=== PATIENT | male | born 1950 | race Caucasian/White ===

== ENCOUNTER → 2020-01-03 | Outpatient (CLI) | payer MEDICARE ==
[2019-12-14 15:00] VITALS: BP 138/62
[~2020-01-03] MED LIST: AMOX1TAB10 PO; ASPI-630 PO; FAMO20TA5 PO; FISH12002 PO; MAGN400C PO; MILK500C PO; OXYB5TAB10 PO; PSYL0.5215 PO; SAW1CAPS8 PO; ST.300CA2 PO; TURM538C PO
--- NOTE | 2020-01-03 08:47 | RAD ---
CT HEAD WITHOUT CONTRAST 01/03/2020 8:30 AM Indication: Reason: SAH TRAUMATIC / Spl. Instructions: / History: Comparison: CT head without contrast December 10, 2019 Procedure: Multidetector CT imaging of the head was performed without the administration of contrast. Findings: Previously seen right frontal subarachnoid hemorrhage has resolved. There is no evidence of acute intracranial hemorrhage. There is no evidence of acute territorial infarction. Please note that CT is limited for evaluation of acute ischemia. No mass effect or midline shift is identified . The ventricles and basilar cisterns have an appropriate appearance. No abnormal extra-axial fluid collections are seen. No acute osseous changes are identified. Impression: Resolution of previously seen right frontal subarachnoid hemorrhage. No evidence of acute intracranial abnormality CT DOSING PQRS STATEMENT: One or more of the following individualized dose reduction techniques were utilized for this examination: 1. Automated exposure control 2. Adjustment of the mA and/or kV according to patient size 3. Use of iterative reconstruction technique Electronically signed by: Eric Burns MD (01/03/2020 8:45 AM) [id number]
== END ==
LOC: CT 08:14
PROVIDERS: ATTEND Neurological Surgery
DX: S06.360A Traumatic hemorrhage of cerebrum, unspecified, without loss of consciousness, initial encounter (principal); X58.XXXA Exposure to other specified factors, initial encounter; Y93.89 Activity, other specified; Y92.89 Other specified places as the place of occurrence of the external cause; Y99.8 Other external cause status
CPT/HCPCS: 70450

== ENCOUNTER → 2020-02-15 | Outpatient (CLI) | payer MEDICARE ==
[2019-12-14 15:00] VITALS: BP 138/62
[2020-02-15 13:55] LABS: BASO % 1 % (0-3); EOS # 0.3 x10^3/uL (0.0-0.7); EOS % 5 % (0-3); HEMATOCRIT 41.3 % (39.0-53.0); HEMOGLOBIN 14.2 g/dL (13.0-17.5); LYMPH # 1.4 x10^3/uL (1.0-4.8); LYMPH % 26 % (24-48); MEAN CORPUSCULAR HEMOGLOBIN 31 pg (25-35); MEAN CORPUSCULAR HGB CONC 34 g/dL (31-37); MEAN CORPUSCULAR VOLUME 90 fL (79-100); MONO # 0.8 x10^3/uL (0.0-1.1); MONO % 16 % (0-9); NEUT # 2.8 x10^3/uL (1.8-7.7); NEUT % 52 % (31-73); PLATELET COUNT 171 x10^3/uL (140-400); RED BLOOD COUNT 4.61 x10^6/uL (4.30-5.70); RED CELL DISTRIBUTION WIDTH 14.4 % (11.5-14.5); WHITE BLOOD COUNT 5.3 x10^3/uL (4.0-11.0)
[2020-02-15 14:17] LABS: C-REACTIVE PROTEIN 33.2 mg/L (0-3.3); CALCIUM 9.9 mg/dL (8.5-10.1); GFR 73.9; POTASSIUM 4.4 mmol/L (3.5-5.1)
--- NOTE | 2020-02-15 15:20 | RAD ---
3 views the right foot without comparison for nonhealing wound on the plantar aspect. FINDINGS: There is no fracture, dislocation, or acute osseous abnormality identified. No significant degenerative changes are seen. There is a calcaneal enthesophyte and calcaneal bone spur. No radiopaque foreign bodies are evident. IMPRESSION: 1. No acute osseous abnormality. Electronically signed by: Jaspal Short MD (02/15/2020 3:15 PM) [id number]
== END ==
LOC: LAB 12:46
PROVIDERS: ATTEND Preventive Medicine Undersea and Hyperbaric Medicine
DX: S91.301A Unspecified open wound, right foot, initial encounter (principal); M77.31 Calcaneal spur, right foot; L89.894 Pressure ulcer of other site, stage 4; X58.XXXA Exposure to other specified factors, initial encounter; Y93.89 Activity, other specified; Y92.89 Other specified places as the place of occurrence of the external cause; Y99.8 Other external cause status
CPT/HCPCS: 36415; 73630; 80048; 85025; 86140

== ENCOUNTER → 2020-02-21 | Outpatient (CLI) | payer MEDICARE ==
[2019-12-14 15:00] VITALS: BP 138/62
--- NOTE | 2020-02-22 08:27 | RAD ---
02/21/2020 1. Ankle-brachial index 2. Bilateral lower extremity arterial duplex ultrasound INDICATION: Right-sided foot wound, involving the plantar surface of the foot, present for approximately one year. COMPARISON STUDY: None available Discussion: Right brachial pressure: 1 24 mmHg Left brachial pressure: 1 20 mmHg Right posterior tibial pressure: 1 77 mmHg Left posterior tibial pressure: 1 68 mmHg Right dorsalis pedis pressure 1 76 mmHg Left dorsalis pedis pressure 1 73 mmHg Right MARION 1.46 Left MARION 1.42 These ankle-brachial indices are abnormally elevated most commonly reflecting vessel hardening and noncompressibility secondary to atherosclerotic vascular disease Ultrasound evaluation of the major arteries of the bilateral lower extremities was performed including color Doppler imaging spectral analysis. There is diffuse atherosclerotic vascular disease. Somewhat prominent eccentric calcification seen in the right common femoral artery without flow-limiting stenosis. Right profunda artery appears grossly patent. Right superficial femoral artery is patent. Popliteal artery is patent. The right peroneal artery is prominent in size measuring approximately 7 mm in diameter. Peroneal artery liver is otherwise patent. Right anterior tibial and dorsalis pedis arteries appear patent. Right posterior tibial artery is heavily calcified but appears to remain patent. There is no sonographically identified focal elevation in velocity consistent with a hemodynamically significant stenosis. No major arterial occlusion or aneurysm is seen. Impression: 1. Abnormally elevated ankle brachial indices most commonly reflecting vessel hardening and noncompressibility secondary to atherosclerotic vascular disease 2. No sonographic evidence of major arterial occlusion or hemodynamically significant stenosis Electronically signed by: Eric Burns MD (02/22/2020 8:24 AM) [id number]
== END ==
LOC: US 10:48
PROVIDERS: ATTEND Preventive Medicine Undersea and Hyperbaric Medicine
DX: L97.519 Non-pressure chronic ulcer of other part of right foot with unspecified severity (principal); I25.10 Atherosclerotic heart disease of native coronary artery without angina pectoris
CPT/HCPCS: 93922; 93926

== ENCOUNTER → 2020-02-28 | Outpatient (CLI) | payer MEDICARE ==
[2019-12-14 15:00] VITALS: BP 138/62
--- NOTE | 2020-02-28 13:35 | RAD ---
EXAMINATION: MRI RIGHT LOWER EXTREMITY W/O INDICATIONS: Nonhealing wound of right foot, exposed bone. TECHNIQUE: Multiplanar multisequence MRI of the right forefoot was obtained without contrast. COMPARISON: None. FINDINGS: There is a small ulcer at the plantar aspect of the great toe metatarsal head. This extends to the la teral sesamoid which demonstrates diffuse T2 1 hypointense and T2 hyperintense signal, consistent wit h osteomyelitis. The sesamoid is fragmented, which could be congenital or related osteomyelitis. Munira ow signal elsewhere is normal. There is diffuse subcutaneous edema, greatest dorsally. Diffuse muscul ar atrophy and increased T2 signal. IMPRESSION: Osteomyelitis of the lateral sesamoid of the great toe MTP joint with small overlying sof t tissue ulcer. Electronically signed by: Estrella Hutchison MD (02/28/2020 1:33 PM) [id number]
== END ==
LOC: MRI 09:36
PROVIDERS: ATTEND Emergency Medicine Undersea and Hyperbaric Medicine
DX: L89.894 Pressure ulcer of other site, stage 4 (principal)
CPT/HCPCS: 73718

== ENCOUNTER → 2020-04-02 | Outpatient (CLI) | payer MEDICARE ==
[2019-12-14 15:00] VITALS: BP 138/62
[~2020-04-02] MED LIST changes: +AMOX1TAB11 PO; +L.AC1CAP6 PO; +MULT-445 PO; +OXYC1TAB15 PO; +TAMS0.4C97 PO
== END ==
LOC: LAB 13:03
PROVIDERS: ATTEND Specialist
DX: Z01.812 Encounter for preprocedural laboratory examination (principal); U07.1 COVID-19; I70.201 Unspecified atherosclerosis of native arteries of extremities, right leg
CPT/HCPCS: U0003

== ENCOUNTER 2020-04-05 10:41 | Observation (INO) | payer MEDICARE ==
[2020-04-05] VITALS (10 sets, daily range): BP systolic 120–156; BP diastolic 56–85
[~2020-04-05] VITALS: Ht 194.3 cm; Wt 99.7 kg
[~2020-04-05 10:41] MED LIST changes: -AMOX1TAB11 PO; +HEPARIN SODIUM 5,000 UNIT in IV NORMAL SALINE 500ML BAG 500 ML IRR ONE; -OXYC1TAB15 PO; -TAMS0.4C97 PO
[2020-04-05] MEDS ORDERED: TAMS0.4C97 PO (11:25)
[2020-04-05] MEDS: IV RINGERS,LACTATED 1000ML 1,000 ML IV SCH ×3 (11:39→20:56)
[2020-04-05] MEDS ORDERED: LIDOCAINE WITH 8.4% SOD BICARB 3 ML DISP.SYRIN. ONE ×2 (11:56→13:34)
[2020-04-05] MEDS ORDERED: IODIXANOL 320 MG/ML 100 ML VIAL. ONE (11:57)
[2020-04-05 12:22] LABS: BASO % 1 % (0-3); EOS # 0.3 x10^3/uL (0.0-0.7); EOS % 5 % (0-3); HEMATOCRIT 42.7 % (39.0-53.0); HEMOGLOBIN 14.4 g/dL (13.0-17.5); LYMPH # 1.5 x10^3/uL (1.0-4.8); LYMPH % 26 % (24-48); MEAN CORPUSCULAR HEMOGLOBIN 30 pg (25-35); MEAN CORPUSCULAR HGB CONC 34 g/dL (31-37); MEAN CORPUSCULAR VOLUME 88 fL (79-100); MONO # 0.8 x10^3/uL (0.0-1.1); MONO % 13 % (0-9); NEUT # 3.3 x10^3/uL (1.8-7.7); NEUT % 55 % (31-73); PLATELET COUNT 156 x10^3/uL (140-400); RED BLOOD COUNT 4.82 x10^6/uL (4.30-5.70); RED CELL DISTRIBUTION WIDTH 13.9 % (11.5-14.5)
[2020-04-05] MEDS ORDERED: LIDOCAINE 2% PF 5 ML VIAL. ONE (12:30)
[2020-04-05] MEDS ORDERED: PROPOFOL 10 MG/ML (20ML) VIAL. IV ONE (12:30)
[2020-04-05] MEDS ORDERED: HYDROmorphone 2 MG/ML VIAL IVP PRN (13:00)
[2020-04-05] MEDS ORDERED: PROCHLORPERAZINE 10 MG/2 ML VIAL. IVP PRN (13:00)
[2020-04-05] MEDS ORDERED: MORPHINE SULFATE 2 MG/ML VIAL. IVP PRN (13:00)
[2020-04-05] MEDS ORDERED: fentaNYL PF VIAL 100 MCG/2 ML VIAL IVP PRN ×2 (13:00)
[2020-04-05] MEDS ORDERED: IV RINGERS,LACTATED 1000ML 1,000 ML IV SCH (13:00)
[2020-04-05 13:05] LABS: CALCIUM 9.3 mg/dL (8.5-10.1); CREATININE 0.9 mg/dL (0.7-1.3); GFR 83.4
[2020-04-05 13:13] LABS: ALBUMIN 3.9 g/dL (3.4-5.0); ALBUMIN/GLOBULIN RATIO 1.2 (1.0-1.7); TOTAL BILIRUBIN 0.5 mg/dL (0.2-1.0); TOTAL PROTEIN 7.2 g/dL (6.4-8.2)
[2020-04-05] MEDS ORDERED: MIDAZOLAM HCL/PF 5 MG/5 ML VIAL. ONE (13:14)
[2020-04-05] MEDS ORDERED: MIDAZOLAM HCL/PF 2 MG/2 ML VIAL. ONE (13:26)
[2020-04-05] MEDS ORDERED: fentaNYL PF VIAL 100 MCG/2 ML VIAL ONE ×2 (13:26→13:55)
[2020-04-05] MEDS ORDERED: IOHEXOL 300 MG/ML 100ML VIAL. IJ ONE (14:15)
[2020-04-05] MEDS ORDERED: LIDOCAINE 1% PF 30 ML VIAL. ONE (14:15)
[2020-04-05] MEDS ORDERED: LIDOCAINE WITH 8.4% SOD BICARB 3 ML DISP.SYRIN. INJ ONE (14:15)
--- NOTE | 2020-04-05 15:05 | PDOC ---
BRIEF OPERATIVE NOTE Pre-Op Diagnosis Peripheral artery disease DM HTN Peripheral neuropathy Osteomyelitlis of right sesmoid bone with toe ulcer Post-Op Diagnosis same Procedure Performed US guided left femoral artery access Abdominal aortogram, runoff Left femoral Perclose placement Right 1st toe amputation with resection of metatarsal head Surgeon Howard Anesthesia Type: MAC, Local Blood Loss 5ml Specimens Obtained Sesmoid bone for culture and sensitivity Right 1st toe with metatarsal head Findings Ulcer extended down and around sesmoid bone into joint of 1st toe Complications none IRINA JEFFERSON MD Apr 05, 2020 15:04
[2020-04-05] MEDS ORDERED: diphenhydrAMINE 50 MG/ML VIAL IV PRN (15:15)
[2020-04-05] MEDS ORDERED: diphenhydrAMINE HCL 25 MG CAPSULE PO PRN (15:15)
[2020-04-05] MEDS ORDERED: NALOXONE 0.4 MG/ML VIAL. IV PRN ×2 (15:15)
[2020-04-05] MEDS ORDERED: ZOLPIDEM 5 MG TABLET. PO PRN (15:15)
[2020-04-05] MEDS ORDERED: 0.9 % SODIUM CHLORIDE 10 ML DISP.SYRIN. IV PRN (15:15)
[2020-04-05] MEDS ORDERED: MAG HYDROX/ALUMINUM HYD/SIMETH 30 ML ORAL.SUSP PO PRN (15:15)
[2020-04-05] MEDS ORDERED: IV NORMAL SALINE 1000ML BAG 1,000 ML IV SCH (15:15)
[2020-04-05] MEDS ORDERED: CALCIUM CARBONATE 500 MG TAB.CHEW PO PRN (15:15)
[2020-04-05] MEDS ORDERED: ONDANSETRON PF 4 MG/2 ML VIAL. IVP PRN (15:15)
--- NOTE | 2020-04-05 16:40 | NUR ---
Arrived to unit by bed from PACU. Alert and oriented x's 4. Wearing hearing aids x's 2 and glasses at bedside. No c/o at this time. Right foot dressing is d/i and elevated on pillow. Pulses + bilaterally and warm touch. Left groin dressing (Perclose device0) is d/i, soft touch with no hematoma. Oriented to room and controls. Side rails up x's 2 with call light in reach. at bedside. Cont. monitor.
--- NOTE | 2020-04-05 17:00 | NUR ---
Sat on edge of bed and was able to void in urinal 150cc clear straw color urine.
[2020-04-05] MEDS: ACETAMINOPHEN 325 MG TABLET. PO PRN (17:27)
[2020-04-05] MEDS: IV NORMAL SALINE 1000ML BAG 1,000 ML IV SCH ×2 (18:42→20:55)
[2020-04-05] MEDS: oxyCODONE IR 5 MG TABLET PO PRN ×2 (19:25→22:21)
[2020-04-05] MEDS: AMOXICILLIN/K CLAV 875/125MG TABLET. PO SCH (20:55)
[2020-04-05] MEDS: HEPARIN for SUB-Q USE 5,000 UNIT/ML VIAL. SQ SCH (22:25)
[2020-04-05] MEDS: MORPHINE SULFATE 2 MG/ML VIAL. IV PRN (23:32)
[2020-04-06] MEDS: MORPHINE SULFATE 2 MG/ML VIAL. IV PRN (01:41)
[2020-04-06 03:07] VITALS: BP 141/70
[2020-04-06] MEDS: ACETAMINOPHEN 325 MG TABLET. PO PRN (06:13)
[2020-04-06] MEDS: HEPARIN for SUB-Q USE 5,000 UNIT/ML VIAL. SQ SCH (06:22)
[2020-04-06 07:00] VITALS: BP 142/62
[2020-04-06] MEDS: AMOXICILLIN/K CLAV 875/125MG TABLET. PO SCH (08:20)
[2020-04-06] MEDS ORDERED: TAMSULOSIN 0.4 MG CAP.ER.24H. PO SCH (09:00)
[2020-04-06] MEDS ORDERED: ASPIRIN CHEWABLE 81 MG TABLET. PO SCH (09:00)
[2020-04-06] MEDS ORDERED: MAGNESIUM OXIDE 400 MG TABLET PO SCH (09:00)
[2020-04-06] MEDS ORDERED: MULTIVITAMIN with MINERAL TABLET. PO SCH (09:00)
[2020-04-06] MEDS ORDERED: LACTOBACILLUS RHAMNOSUS GG 1 CAPSULE. PO SCH (09:00)
[2020-04-06] MEDS ORDERED: OMEGA-3 FATTY ACIDS/FISH OIL 1,000 MG CAPSULE. PO SCH (09:00)
[2020-04-06] MEDS ORDERED: AMOX1TAB11 PO (09:30)
[2020-04-06] MEDS ORDERED: OXYC1TAB15 PO (09:30)
--- NOTE | 2020-04-06 09:41 | PDOC ---
PROGRESS NOTES Date of Service DATE: 04/06/20 TIME: 09:35 Subjective Subjective He is without new complaints. Objective Objective Vital Signs Date Time Temp Pulse Resp B/P (MAP) Pulse Ox O2 Delivery O2 Flow Rate FiO2 04/06/20 07:52 Room Air 04/06/20 07:00 97.9 52 16 142/62 (88) 95 97.9 04/05/20 15:26 2 Intake and Output 04/06/20 07:00 Intake Total 1550 ml Output Total 710 ml Balance 840 ml Intake Oral 700 ml IV Total 850 ml Output Urine Total 700 ml Estimated Blood Loss 10 ml # Voids 1 Physical Exam Abdomen: Soft, No tenderness Extremities: Other (Right foot dressing intact. Left femoral puncture site intact. 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 Instructions given to patient and . Comment Review of Relevant I have reviewed the following items angel (where applicable) has been applied. Labs Laboratory Tests Test 04/05/20 11:21 White Blood Count 6.0 x10^3/uL (4.0-11.0) Red Blood Count 4.82 x10^6/uL (4.30-5.70) Hemoglobin 14.4 g/dL (13.0-17.5) Hematocrit 42.7 % (39.0-53.0) Mean Corpuscular Volume 88 fL (79-100) Mean Corpuscular Hemoglobin 30 pg (25-35) Mean Corpuscular Hemoglobin Concent 34 g/dL (31-37) Red Cell Distribution Width 13.9 % (11.5-14.5) Platelet Count 156 x10^3/uL (140-400) Neutrophils (%) (Auto) 55 % (31-73) Lymphocytes (%) (Auto) 26 % (24-48) Monocytes (%) (Auto) 13 % (0-9) Eosinophils (%) (Auto) 5 % (0-3) Basophils (%) (Auto) 1 % (0-3) Neutrophils # (Auto) 3.3 x10^3/uL (1.8-7.7) Lymphocytes # (Auto) 1.5 x10^3/uL (1.0-4.8) Monocytes # (Auto) 0.8 x10^3/uL (0.0-1.1) Eosinophils # (Auto) 0.3 x10^3/uL (0.0-0.7) Basophils # (Auto) 0.0 x10^3/uL (0.0-0.2) Sodium Level 148 mmol/L (136-145) Potassium Level 4.0 mmol/L (3.5-5.1) Chloride Level 109 mmol/L (98-107) Carbon Dioxide Level 28 mmol/L (21-32) Anion Gap 11 (6-14) Blood Urea Nitrogen 21 mg/dL (8-26) Creatinine 0.9 mg/dL (0.7-1.3) Estimated GFR (Cockcroft-Gault) 83.4 BUN/Creatinine Ratio 23 (6-20) Glucose Level 95 mg/dL (70-99) Calcium Level 9.3 mg/dL (8.5-10.1) Total Bilirubin 0.5 mg/dL (0.2-1.0) Aspartate Amino Transf (AST/SGOT) 12 U/L (15-37) Alanine Aminotransferase (ALT/SGPT) 21 U/L (16-63) Alkaline Phosphatase 53 U/L (46-116) Total Protein 7.2 g/dL (6.4-8.2) Albumin 3.9 g/dL (3.4-5.0) Albumin/Globulin Ratio 1.2 (1.0-1.7) Laboratory Tests Test 04/05/20 11:21 White Blood Count 6.0 x10^3/uL (4.0-11.0) Red Blood Count 4.82 x10^6/uL (4.30-5.70) Hemoglobin 14.4 g/dL (13.0-17.5) Hematocrit 42.7 % (39.0-53.0) Mean Corpuscular Volume 88 fL (79-100) Mean Corpuscular Hemoglobin 30 pg (25-35) Mean Corpuscular Hemoglobin Concent 34 g/dL (31-37) Red Cell Distribution Width 13.9 % (11.5-14.5) Platelet Count 156 x10^3/uL (140-400) Neutrophils (%) (Auto) 55 % (31-73) Lymphocytes (%) (Auto) 26 % (24-48) Monocytes (%) (Auto) 13 % (0-9) Eosinophils (%) (Auto) 5 % (0-3) Basophils (%) (Auto) 1 % (0-3) Neutrophils # (Auto) 3.3 x10^3/uL (1.8-7.7) Lymphocytes # (Auto) 1.5 x10^3/uL (1.0-4.8) Monocytes # (Auto) 0.8 x10^3/uL (0.0-1.1) Eosinophils # (Auto) 0.3 x10^3/uL (0.0-0.7) Basophils # (Auto) 0.0 x10^3/uL (0.0-0.2) Sodium Level 148 mmol/L (136-145) Potassium Level 4.0 mmol/L (3.5-5.1) Chloride Level 109 mmol/L (98-107) Carbon Dioxide Level 28 mmol/L (21-32) Anion Gap 11 (6-14) Blood Urea Nitrogen 21 mg/dL (8-26) Creatinine 0.9 mg/dL (0.7-1.3) Estimated GFR (Cockcroft-Gault) 83.4 BUN/Creatinine Ratio 23 (6-20) Glucose Level 95 mg/dL (70-99) Calcium Level 9.3 mg/dL (8.5-10.1) Total Bilirubin 0.5 mg/dL (0.2-1.0) Aspartate Amino Transf (AST/SGOT) 12 U/L (15-37) Alanine Aminotransferase (ALT/SGPT) 21 U/L (16-63) Alkaline Phosphatase 53 U/L (46-116) Total Protein 7.2 g/dL (6.4-8.2) Albumin 3.9 g/dL (3.4-5.0) Albumin/Globulin Ratio 1.2 (1.0-1.7) Medications Current Medications Heparin Sodium (Porcine) 5000 unit/Sodium Chloride 505 ml @ 505 mls/hr 1X ONCE IRR ; Start 04/05/20 at 06:00; Stop 04/05/20 at 06:59; Status DC Cefazolin Sodium 1 gm/Sodium Chloride 500 ml @ 500 mls/hr 1X ONCE IRR ; Start 04/05/20 at 06:00; Stop 04/05/20 at 06:59; Status DC Cefazolin Sodium/ Dextrose 50 ml @ 100 mls/hr 1X PREOP PRN IV PRIOR TO PROCEDURE; Start 04/05/20 at 06:00; Stop 04/05/20 at 18:00; Status DC Ringer's Solution 1,000 ml @ 75 mls/hr [id number] IV Last administered on 04/05/20at 11:39; Start 04/05/20 at 11:45 Lidocaine HCl (Buffered Lidocaine 1%) 3 ml STK-MED ONCE .ROUTE ; Start 04/05/20 at 11:56; Stop 04/05/20 at 11:57; Status DC Iodixanol (Visipaque 320) 100 ml STK-MED ONCE .ROUTE ; Start 04/05/20 at 11:57; Stop 04/05/20 at 11:57; Status DC Heparin Sodium/ Sodium Chloride 1,000 ml @ As Directed STK-MED ONCE .ROUTE ; Start 04/05/20 at 11:57; Stop 04/05/20 at 11:57; Status DC Propofol (Diprivan) 200 mg STK-MED ONCE IV ; Start 04/05/20 at 12:30; Stop 04/05/20 at 12:30; Status DC Lidocaine HCl (Lidocaine Pf 2% Vial) 5 ml STK-MED ONCE .ROUTE ; Start 04/05/20 at 12:30; Stop 04/05/20 at 12:30; Status DC Fentanyl Citrate (Fentanyl 2ml Vial) 25 mcg PRN Q5MIN PRN IVP MILD PAIN 1-3; Start 04/05/20 at 13:00; Stop 04/06/20 at 12:59 Fentanyl Citrate (Fentanyl 2ml Vial) 50 mcg PRN Q5MIN PRN IVP MODERATE PAIN 4- 6; Start 04/05/20 at 13:00; Stop 04/06/20 at 12:59 Morphine Sulfate (Morphine Sulfate) 1 mg PRN Q10MIN PRN IVP SEVERE PAIN 7-10; Start 04/05/20 at 13:00; Stop 04/06/20 at 12:59 Ringer's Solution 1,000 ml @ 30 mls/hr Q24H IV ; Start 04/05/20 at 13:00; Stop 04/06/20 at 00:59; Status DC Hydromorphone HCl (Dilaudid) 0.5 mg PRN Q10MIN PRN IVP SEVERE PAIN 7-10, 2nd CHOICE; Start 04/05/20 at 13:00; Stop 04/06/20 at 12:59 Prochlorperazine Edisylate (Compazine) 5 mg PACU PRN PRN IVP NAUSEA, MRX1; Start 04/05/20 at 13:00; Stop 04/06/20 at 12:59 Midazolam HCl (Versed) 5 mg STK-MED ONCE .ROUTE ; Start 04/05/20 at 13:14; Stop 04/05/20 at 13:15; Status DC Midazolam HCl (Versed) 2 mg STK-MED ONCE .ROUTE ; Start 04/05/20 at 13:26; Stop 04/05/20 at 13:26; Status DC Fentanyl Citrate (Fentanyl 2ml Vial) 100 mcg STK-MED ONCE .ROUTE ; Start 04/05/20 at 13:26; Stop 04/05/20 at 13:26; Status DC Lidocaine HCl (Buffered Lidocaine 1%) 3 ml STK-MED ONCE .ROUTE ; Start 04/05/20 at 13:34; Stop 04/05/20 at 13:34; Status DC Fentanyl Citrate (Fentanyl 2ml Vial) 100 mcg STK-MED ONCE .ROUTE ; Start 04/05/20 at 13:55; Stop 04/05/20 at 13:55; Status DC Lidocaine HCl (Xylocaine 1% Pf 30ml Vial) 30 ml STK-MED ONCE .ROUTE Last administered on 04/05/20at 14:11; Start 04/05/20 at 14:15; Stop 04/05/20 at 14:15; Status DC Iohexol (Omnipaque 300 Mg/ml) 200 ml 1X ONCE IJ Last administered on 04/05/20at 14:18; Start 04/05/20 at 14:15; Stop 04/05/20 at 14:17; Status DC Lidocaine HCl (Buffered Lidocaine 1%) 6 ml 1X ONCE INJ Last administered on 04/05/20at 14:21; Start 04/05/20 at 14:15; Stop 04/05/20 at 14:17; Status DC Heparin Sodium/ Sodium Chloride (HEPARIN for ARTERIAL LINE FLUSH) 2,000 unit 1X ONCE IV Last administered on 04/05/20at 14:20; Start 04/05/20 at 14:15; Stop 04/05/20 at 14:17; Status DC Aspirin (Aspirin Chewable) 81 mg DAILY PO Last administered on 04/06/20at 08:20; Start 04/06/20 at 09:00 Tamsulosin HCl (Flomax) 0.4 mg DAILY PO Last administered on 04/06/20at 08:20; Start 04/06/20 at 09:00 Fish Oil (Fish Oil) 1,000 mg DAILY PO Last administered on 04/06/20at 08:20; Start 04/06/20 at 09:00 Lactobacillus Rhamnosus (Culturelle) 1 cap DAILY PO Last administered on 04/06/20at 08:20; Start 04/06/20 at 09:00 Magnesium Oxide (Magnesium Oxide) 400 mg DAILY PO Last administered on 04/06/20at 08:20; Start 04/06/20 at 09:00 Multivitamins (Thera M Plus) 1 tab DAILY PO Last administered on 04/06/20at 08:20; Start 04/06/20 at 09:00 Oxycodone HCl (Roxicodone) 5 mg PRN Q3HRS PRN PO PAIN SEVERE 2ND CHOICE Last administered on 04/05/20at 22:21; Start 04/05/20 at 15:15 Al Hydroxide/Mg Hydroxide (Mylanta Plus Xs) 30 ml PRN Q3HRS PRN PO HEARTBURN / GAS; Start 04/05/20 at 15:15 Calcium Carbonate/ Glycine (Tums) 500 mg PRN Q3HRS PRN PO INDIGESTION; Start 04/05/20 at 15:15 Diphenhydramine HCl (Benadryl) 25 mg PRN Q6HRS PRN PO ITCHING; Start 04/05/20 at 15:15 Diphenhydramine HCl (Benadryl) 25 mg PRN Q6HRS PRN IV ITCHING; Start 04/05/20 at 15:15 Zolpidem Tartrate (Ambien) 5 mg PRN QHS PRN PO INSOMNIA; Start 04/05/20 at 15:15 Naloxone HCl (Narcan) 0.1 mg PRN Q2MIN PRN IV SEE ADMIN INSTRUCTIONS; Start 04/05/20 at 15:15 Heparin Sodium (Porcine) (Heparin Sodium) 5,000 unit Q8HRS SQ Last administered on 04/06/20at 06:22; Start 04/05/20 at 22:00 Sodium Chloride (Normal Saline Flush) 3 ml QSHIFT PRN IV AFTER MEDS AND BLOOD DRAWS; Start 04/05/20 at 15:15 Sodium Chloride 1,000 ml @ 100 mls/hr Q10H IV Last administered on 04/05/20at 18:42; Start 04/05/20 at 15:15; Stop 04/06/20 at 05:00; Status DC Acetaminophen (Tylenol) 650 mg PRN Q6HRS PRN PO Headaches, Temp > 101.5F Last administered on 04/06/20at 06:13; Start 04/05/20 at 15:15 Morphine Sulfate (Morphine Sulfate) 2 mg PRN Q1HR PRN IV PAIN Last administered on 04/06/20at 01:41; Start 04/05/20 at 15:15 Naloxone HCl (Narcan) 0.4 mg PRN Q2MIN PRN IV SEE INSTRUCTIONS; Start 04/05/20 at 15:15 Sodium Chloride 1,000 ml @ 25 mls/hr Q24H IV ; Start 04/05/20 at 15:15 Ondansetron HCl (Zofran) 4 mg PRN Q6HRS PRN IVP NAUESA, 1ST CHOICE; Start 04/05/20 at 15:15 Amoxicillin/ Clavulanate Potassium (Augmentin 875/ 125mg) 1 tab BID PO Last administered on 04/06/20at 08:20; Start 04/05/20 at 21:00 Active Scripts Active Percocet 5-325 Mg Tablet (Oxycodone/Acetaminophen) 1 Each Tablet 1 Tab PO PRN BID PRN MDD 2 Tablet(s) 10 Days May take 1 or 2 tabs every 6 hours as needed for pain. Reported Flomax (Tamsulosin Hcl) 0.4 Mg Cap.er.24h 0.4 Mg PO DAILY Probiotic (L.acidoph & Paracasei,B.lactis) 1 Each Capsule 1 Each PO DAILY Multivitamins (Multivitamin) 1 Each Tablet 1 Tab PO DAILY Aspirin 81 Mg Tab.chew 1 Tab PO DAILY Milk Thistle 500 Mg Capsule 1,000 Mg PO DAILY Turmeric (Turmeric Root Extract) 538 Mg Capsule 1,000 Mg PO HS Weldon's Wort 300 Mg Capsule 300 Mg PO HS [place] 3-6-9 1,200 mg Softgel (Fish Oil/Borage/Flax/Om3,6,9#1) 1,200 Mg Capsule 1 Cap PO DAILY 30 Days Magnesium (Magnesium Oxide) 400 Mg Capsule 1 Cap PO DAILY 30 Days Saw [place] 450 mg Capsule (Saw [place] Fruit/Zinc Picoli) 1 Each Capsule 1 Each PO HS Vitals/I & O Vital Sign - Last 24 Hours 04/05/20 04/05/20 04/05/20 04/05/20 11:31 11:35 14:56 14:56 Temp 97.2 97.2 97.8 97.2 97.2 97.8 Pulse 64 64 66 Resp 18 20 11 B/P (MAP) 140/75 132/61 Pulse Ox 99 99 98 O2 Delivery Room Air Nasal Cannula Nasal Cannula O2 Flow Rate 2 2 04/05/20 04/05/20 04/05/20 04/05/20 15:12 15:26 15:41 15:56 Pulse 60 70 74 66 Resp 10 13 20 20 B/P (MAP) 140/62 152/59 155/68 159/72 Pulse Ox 99 100 100 100 O2 Delivery Nasal Cannula Nasal Cannula Room Air Room Air O2 Flow Rate 2 2 04/05/20 04/05/20 04/05/20 04/05/20 16:11 16:34 16:48 16:50 Temp 97.9 97.9 Pulse 66 95 80 Resp 20 18 18 B/P (MAP) 159/72 156/83 (107) 156/83 (107) Pulse Ox 100 98 97 O2 Delivery Room Air Room Air Room Air Room Air 04/05/20 04/05/20 04/05/20 04/05/20 17:03 17:19 17:33 18:03 Pulse 75 78 86 74 Resp 18 18 18 18 B/P (MAP) 152/75 (100) 120/57 (78) 132/85 (101) 127/74 (91) Pulse Ox 97 98 O2 Delivery Room Air Room Air Room Air Room Air 04/05/20 04/05/20 04/05/20 04/05/20 18:33 19:03 19:25 19:30 Temp 97.9 97.9 Pulse 78 75 Resp 18 18 16 B/P (MAP) 134/56 (82) 136/57 (83) O2 Delivery Room Air Room Air Room Air 04/05/20 04/05/20 04/05/20 04/05/20 20:03 20:25 22:21 23:15 Temp 97.9 98.3 97.9 98.3 Pulse 73 72 Resp 18 16 16 18 B/P (MAP) 148/69 (95) 141/66 (91) Pulse Ox 97 95 O2 Delivery Room Air Room Air Room Air Room Air 04/05/20 04/05/20 04/06/20 04/06/20 23:21 23:32 00:02 01:41 Resp 16 16 16 16 O2 Delivery Room Air Room Air Room Air 04/06/20 04/06/20 04/06/20 04/06/20 02:11 03:07 07:00 07:52 Temp 97.7 97.9 97.7 97.9 Pulse 98 52 Resp 16 18 16 B/P (MAP) 141/70 (93) 142/62 (88) Pulse Ox 96 95 O2 Delivery Room Air Room Air Room Air Room Air Intake and Output 04/05/20 04/05/20 04/06/20 15:00 23:00 07:00 Intake Total 700 ml 750 ml 100 ml Output Total 10 ml 150 ml 550 ml Balance 690 ml 600 ml -450 ml Justifications for Admission Other Justification IRINA JEFFERSON MD Apr 06, 2020 09:41
--- NOTE | 2020-04-06 09:45 | SNU/HH DC ---
DISCHARGE WITH HOME HEALTH DISCHARGE INFORMATION: Condition on Discharge: Stable HOME HEALTH: Face to Face: I certify this patient is under my care and that I, or a nurse practitioner or physician's geriatric assistant working with me, had a face to face encounter that meets the physician face to face encounter requirements with this patient on [04/06/2020]. Medical Complications: Other (Right 1st toe amputation) RN For Eval/Treatment: Yes Pt Meets Homebound Status: Extreme weakness w/ amb. POST DISCHARGE ORDERS: Activity Instructions for Disc: No restrictions, Other, see below (May do limited walking in house with 1/2 shoe on the right.) Weight Bearing Status after Di: No restrictions Bathing Instructions: No Tub Bath until see DIET AFTER DISCHARGE: Cardiac Wound/Incision Care: Ice to area for comfort, Change dressing, Reinforce dressing PRN Other wound/incision instructi: Right foot dressing may be removed on 04/08/2020. Dry gauze to incision. CHECKS AFTER DISCHARGE: Checks after discharge: Check blood press - daily FOLLOW-UP: Follow up with: [facility] on 05/06/2020 at 10am, [id number] [place] CERTIFICATION STATEMENT: Certification Statement: Certification Statement: Based on the above finding, I certify that this patient is confined to the home and needs intermittent halfway care, physical therapy and/or speech therapy, or continues to need occupational therapy.~ This patient is under my care, and I have initiated the establishment of the plan of care.~ This patient will be followed by myself or a community physician who will periodically review the plan of care. Home Meds Active Scripts Oxycodone/Apap 5-325 (PERCOCET 5-325 MG TABLET ) 1 Each Tablet, 1 TAB PO PRN BID PRN for PAIN MDD 2 Tablet(s) for 10 Days, #30 TAB 0 Refills May take 1 or 2 tabs every 6 hours as needed for pain. Prov:IRINA JEFFERSON MD 04/06/20 Amoxicillin/Potassium Clav (AMOX TR-K CLV 875-125 MG TAB) 1 Each Tablet, 1 TAB PO BID for foot infection for 10 Days, #20 TAB Prov:IRINA JEFFERSON MD 04/06/20 Reported Medications Tamsulosin Hcl (FLOMAX) 0.4 Mg Cap.er.24h, 0.4 MG PO DAILY for BLADDER, TAB 1/22/21 L.acidoph & Paracasei,B.lactis (Probiotic) 1 Each Capsule, 1 EACH PO DAILY for supplement, CAP 04/02/20 Multivitamin (MULTIVITAMINS) 1 Each Tablet, 1 TAB PO DAILY for supplement, #90 TAB 3 Refills 04/02/20 Aspirin (ASPIRIN) 81 Mg Tab.chew, 1 TAB PO DAILY for PAD, #30 TAB 3 Refills 04/02/20 Milk Thistle (MILK THISTLE) 500 Mg Capsule, 1000 MG PO DAILY for Supplement, CAP 12/09/19 Turmeric Root Extract (Turmeric) 538 Mg Capsule, 1000 MG PO HS for Supplement, CAP 12/09/19 Loretta's Wort (LORETTA'S WORT) 300 Mg Capsule, 300 MG PO HS for Supplement , CAP 12/09/19 Fish Oil/Borage/Flax/Om3,6,9#1 ([place] 3-6-9 1,200 mg Softgel) 1,200 Mg Capsule, 1 CAP PO DAILY for Supplement for 30 Days, #30 CAP 0 Refills 12/09/19 Magnesium Oxide (MAGNESIUM) 400 Mg Capsule, 1 CAP PO DAILY for Supplement for 30 Days, #30 CAP 0 Refills 12/09/19 Saw [place] Fruit/Zinc Picoli (Saw [place] 450 mg Capsule) 1 Each Capsule, 1 EACH PO HS for Supplement, CAP 12/09/19 IRINA JEFFERSON MD Apr 06, 2020 09:45
--- NOTE | 2020-04-06 10:45 | NUR ---
Discharge Note: SUJATHA FREEMAN Discharge instructions and discharge home medications reviewed with Patient and patients and a copy given. All questions have been answered and understanding verbalized. The following instructions and handouts were given: information about plan of care, dressing changes, when to remove dressing, activity, diet, medications, etc. Discontinued lines and drains: IV line in left hand removed, catheter tip intact. Patient discharged to home with self care with , wheelchair used for mobility to discharge vehicle.
--- NOTE | 2020-04-08 09:55 | OP ---
DATE OF SURGERY: 04/05/2020 PREOPERATIVE DIAGNOSES: 1. Nonhealing right foot plantar wound. 2. Osteomyelitis of the right ethmoid bone. 3. Peripheral neuropathy. 4. Peripheral arterial disease. POSTOPERATIVE DIAGNOSES: 1. Nonhealing right foot plantar wound. 2. Osteomyelitis of the right ethmoid bone. 3. Peripheral neuropathy. 4. Peripheral arterial disease. PROCEDURES: 1. Ultrasound-guided left common femoral artery access. 2. Abdominal aortogram with selective bilateral lower extremity arteriogram. 3. Left femoral Perclose placement. 4. Right first toe amputation including resection of metatarsal head. SURGEON: Hernan Jefferson MD ANESTHESIA: Monitored anesthesia care, local. INDICATIONS: The patient is a 69-year-old male with a long history of right plantar foot ulcer over the first metatarsophalangeal joint. MRI showed evidence of osteomyelitis of the patient's sesamoid bone. He presents for angiogram and possible percutaneous intervention with debridement and possible first toe amputation. FINDINGS: Aortoiliac arteriogram: The abdominal aorta is patent without significant narrowing. There are single renal arteries bilaterally without significant renal artery narrowing. Both common internal and external iliac arteries are patent without significant narrowing. Right lower extremity arteriogram: The right common, superficial and deep femoral arteries are patent without significant narrowing. The right popliteal artery is similarly patent without narrowing to the tibial trifurcation. The right anterior tibial and posterior tibial arteries are patent with good flow to the ankle and foot. Peroneal artery is open proximally tapers to occlusion in the mid lower leg. Left lower extremity arteriogram: The left common, superficial and deep femoral arteries are patent without significant narrowing. The left popliteal artery is similarly patent without significant narrowing. The tibial trifurcation is patent with main outflow via the anterior tibial and posterior tibial artery, which extend to the foot. Right foot debridement was performed removing callus from ulcer extending down to the sesamoid bones. There is an open tissue all the way down to the first metatarsophalangeal joint. I did not feel that this had a reasonable chance of healing due to joint involvement. Subsequently, I elected to proceed with first toe ray amputation. Cultures of the sesamoid bones were sent for culture and sensitivity. DESCRIPTION OF PROCEDURE: The patient was taken to the hybrid angio suite and placed on the angiogram table. He underwent monitored anesthesia care. Bilateral groins were prepped and draped in normal sterile fashion. 1% lidocaine was used as local anesthetic in the left groin. Real time ultrasound was used to visualize the left common femoral artery. Micropuncture needle was used to cannulate the common femoral artery in retrograde fashion under direct ultrasound guidance. Guidewire was advanced without difficulty. Transitional sheath was advanced over the guidewire. Through this transitional sheath, a J-wire was inserted. Over the J-wire, a 5-Tristanian sheath was inserted. Through this 5-Tristanian sheath, an Omniflush catheter was advanced over a Bentson wire to the suprarenal aorta. Contrast injected, images acquired using subtraction angiography of the abdomen with findings as noted above. The catheter was then withdrawn to the distal abdominal aorta. Oblique views were obtained of the pelvis and proximal thighs with findings as noted above. Omniflush catheter was used with a Bentson guidewire to cannulate the right common iliac artery. Guidewire was advanced distally. The catheter was advanced down to the right common femoral artery. Contrast injected, images acquired using subtraction angiography in the right lower extremity with findings as detailed above. Guidewire was readvanced, the catheter removed over guidewire. Contrast injected and images acquired in stage views on the left lower extremity with findings as noted above. He did not have significant arterial insufficiency that needed intervention at this time. Left femoral sheath was removed and a 6-Tristanian Perclose deployed. Sterile dressing applied in the left groin access site. Right foot and lower leg were prepped and draped in sterile fashion. 1% lidocaine was infused as a digital block at the base of the right first toe and additional lidocaine placed around the plantar foot ulcer. There was extensive callus around the right plantar foot ulcer that was unroofed to expose the underlying ulcer. Probing of the bone showed that this area of break down all the way to the joint space of the right first metatarsophalangeal joint. Even with resection of the infected sesamoid bone, it is unlikely that the infection will be adequately cleared. I subsequently elected to proceed with right 1st toe amputation. An incision was made around the ulcer and proximal toe. This was extended through the metatarsal phalangeal joint. The sesamoid bone was sent for culture and sensativity. The metatarsal head was freed from surrounding tissue and divided with a bone cutter and trimmed proximally with a rongeur. The exposed tendons were excised. All nonviable tissue, infected-appearing tissue was excised. Electrocautery was used for hemostasis. The wound was then copiously irrigated with saline irrigation. The subcutaneous tissue was reapproximated with a [id number] 3-0 Vicryl suture. The subcutaneous tissue was reapproximated with running 3-0 Vicryl suture. Skin was reapproximated with running 3-0 nylon suture. Xeroform followed by 4x4s, ABD, Kerlix and an Eder wrap was applied. The patient tolerated the procedure well and there were no complications. ESTIMATED BLOOD LOSS: 5 mL. SPECIMENS: Right sesamoid bone sent to micro and right first toe for pathology. HERNAN JEFFERSON MD DR: DAKOTA/sharee JOB#: [id number] / [id number] IVONE Walters MD, TERRY MD MTDD
== END 2020-04-06 10:45 | disposition home or self-care (01) ==
LOC: SURG 10:41 → 4 NORTH 15:06
PROVIDERS: ADMIT Specialist; ATTEND Specialist
DX: M19.90 Unspecified osteoarthritis, unspecified site (principal); I25.10 Atherosclerotic heart disease of native coronary artery without angina pectoris; I10 Essential (primary) hypertension; I73.9 Peripheral vascular disease, unspecified; S98.111A Complete traumatic amputation of right great toe, initial encounter; E11.51 Type 2 diabetes mellitus with diabetic peripheral angiopathy without gangrene; E11.621 Type 2 diabetes mellitus with foot ulcer; L97.519 Non-pressure chronic ulcer of other part of right foot with unspecified severity; X58.XXXA Exposure to other specified factors, initial encounter; Y93.89 Activity, other specified; Y92.89 Other specified places as the place of occurrence of the external cause; Y99.8 Other external cause status
CPT/HCPCS: 28820; 36247; 36415; 75625; 75716; 76937; 80053; 85025; 87071; 87075; 96361; 96372; 96374; 96375; 96376; A4461; C1760; C1769; C1892; C1894; G0269; G0378; G0379; J0690; J1644; J2250; J2270; J2704; J3010; J3490; J7030; J7040; Q9967; 87077; 87176; 87186; 88305; 88311

== ENCOUNTER → 2020-06-19 | Outpatient (CLI) | payer MEDICARE ==
[~2020-06-19] MED LIST changes: +AMOX1TAB11 PO; -HEPARIN SODIUM 5,000 UNIT in IV NORMAL SALINE 500ML BAG 500 ML IRR ONE; +OXYC1TAB15 PO; +TAMS0.4C97 PO
--- NOTE | 2020-06-20 14:58 | RAD ---
EXAMINATION: XR RT TOE 2+ VIEWS CLINICAL HISTORY: RIGHT 2ND TOE PRESSURE WOUND. TECHNIQUE: XR RT TOE 2+ VIEWS Number of Images/Views: 3 COMPARISON: Right foot radiographs 02/15/2020 FINDINGS: Postsurgical changes related to interval partial amputation of the first ray proximal to the metatars al neck. Mild cortical irregularity along the amputation plane, nonspecific and possibly related to h ealing. No destructive osseous changes or focal osteopenia definitively visualized. No acute fracture. Soft t issue prominence in the medial forefoot at the site of prior amputation. IMPRESSION: No definite radiographic evidence of osteomyelitis in the right forefoot. If concern for osteomyeliti s, recommend MRI of with small [id number] images in the region of interest for further evaluation. Postoperative changes related to interval partial first ray amputation. Electronically signed by: Jerry Walton DO (06/20/2020 2:55 PM) [id number]
== END ==
LOC: RAD 12:24
PROVIDERS: ATTEND Preventive Medicine Undersea and Hyperbaric Medicine
DX: S91.109A Unspecified open wound of unspecified toe(s) without damage to nail, initial encounter (principal); M79.674 Pain in right toe(s); X58.XXXA Exposure to other specified factors, initial encounter; Y93.89 Activity, other specified; Y92.89 Other specified places as the place of occurrence of the external cause; Y99.8 Other external cause status
CPT/HCPCS: 73660